=== PATIENT | female | born 1980 | race Caucasian/White ===

== ENCOUNTER 2017-04-16 15:20 | Emergency (ER) | payer MEDICAID ==
[~2017-04-16] VITALS: Ht 160 cm; Wt 54.9 kg
[~2017-04-16 15:20] MED LIST: ACET325T33 PO; ALBU8.5H3 INH; AZIT250T94 PO
[2017-04-16 15:22] VITALS: Ht 160 cm; Wt 54.9 kg
[2017-04-16] MEDS ORDERED: KETOROLAC 30 MG INJ IM STA (16:04)
[2017-04-16] MEDS ORDERED: ONDANSETRON (ODT) 4 MG TAB ODT STA (16:04)
[2017-04-16] MEDS ORDERED: HYDROCODONE/APAP (5/325) TAB PO ONE (16:30)
[2017-04-16] MEDS ORDERED: IBUP400T22 PO (16:57)
[2017-04-16] MEDS ORDERED: HYDR-906 PO (16:57)
[2017-04-16] MEDS ORDERED: ONDA4TAB14 PO (16:57)
[2017-04-16 17:10] VITALS: BP 138/77; PULSE 70; RESP 18; TEMP 98.2
--- NOTE | 2017-04-16 18:05 | ERD ---
ER Documentation Chief Complaint Chief Complaint C/O HEADACHE, PAIN TO FOREHEAD AND LEFT EYE FOR 3 DAYS; NO NEURO DEFICIT HPI Patient is a 36-year-old female presenting to the emergency department with complaints of headache. Pain is localized to the left side of the head and feels it is behind the left eye. 8 out of 10 pain which is intermittent. She does have history of the same in the past. She denies dysuria, fevers, neck pain, nausea, or other symptoms at this time. ROS All systems reviewed and are negative except as per history of present illness. Medications Home Meds Active Scripts Ondansetron (Ondansetron Odt) 4 Mg Tab.rapdis, 4 MG PO Q6H Y for NAUSEA AND/OR VOMITING, #10 TAB Prov:CASH BRODY PA-C 04/16/17 Ibuprofen* (Motrin*) 400 Mg Tab, 400 MG PO Q6, #30 TAB Prov:CASH BRODY PA-C 04/16/17 Hydrocodone/Acetaminophen ([place] 5-325 Tablet) 1 Each Tablet, 1 TAB PO Q6H Y for PAIN, #7 TAB Prov:CASH BRODY PA-C 04/16/17 Azithromycin* (Zithromax*) 250 Mg Tablet, 250 MG PO .ZPACK DIRECTED, #6 TAB TAKE 500 MG (2 TABS) THE FIRST DAY THEN 250 MG (1 TAB) DAYS 2-5 Prov:ANAND CAO PA-C 11/05/15 Albuterol Sulfate* (Proair HFA*) 8.5 Gm Hfa.aer.ad, 2 PUFF INH Q4, #1 INHALER Prov:ANAND CAO PA-C 09/19/15 Acetaminophen* (Tylenol*) 325 Mg Tablet, 2 TAB PO Q8 Y for PAIN AND OR ELEVATED TEMP, #20 TAB Prov:ANAND CAO PA-C 09/19/15 Allergies Allergies: Coded Allergies: No Known Allergy (Unverified , 06/01/16) PMhx/Soc Medical and Surgical Hx: pt denies Medical Hx, pt denies Surgical Hx History of Surgery: No Anesthesia Reaction: No Hx Neurological Disorder: No Hx Respiratory Disorders: No Hx Cardiac Disorders: No Hx Psychiatric Problems: No Hx Miscellaneous Medical Probl: No Hx Alcohol Use: No Hx Substance Use: No Hx Tobacco Use: No Smoking Status: Never smoker Physical Exam Vitals Vital Signs Date Time Temp Pulse Resp B/P Pulse Ox O2 Delivery O2 Flow Rate FiO2 04/16/17 17:10 98.2 70 18 138/77 100 Room Air 04/16/17 15:22 98.3 73 18 138/77 100 Physical Exam Const: Nontoxic, well-appearing female in no acute distress. Head: Atraumatic Eyes: Normal Conjunctiva ENT: Normal External Ears, Nose and Mouth. Neck: Full range of motion..~ No meningismus. Resp: Clear to auscultation bilaterally Cardio: Regular rate and rhythm, no murmurs Skin: No petechiae or rashes Ext: No cyanosis, or edema Neur: Awake and alert Psych: Normal Mood and Affect Results 24 hrs Current Medications Medications (Trade) Dose Ordered Sig/Eusebia Route PRN Reason Start Time Stop Time Status Last Admin Dose Admin Acetaminophen/ Hydrocodone Bitart ([place] (5/325)) 1 tab ONCE ONCE PO 04/16/17 16:30 04/16/17 16:31 DC 04/16/17 16:16 Ondansetron HCl (Zofran Odt) 4 mg ONCE STAT ODT 04/16/17 16:04 04/16/17 16:06 DC 04/16/17 16:16 Ketorolac Tromethamine (Toradol) 30 mg ONCE STAT IM 04/16/17 16:04 04/16/17 16:06 DC 04/16/17 16:16 Procedures/MDM 36-year-old female presenting to the emergency department with complaints of headache. Sxs are likely secondary to tension headache or migraine. Low suspicion for meningitis, intracranial hemorrhage, sepsis, or other emergencies. Patient stable for outpatient management with prescriptions. She was treated in the department and she was feeling significantly improved prior to discharge. Patient is to follow-up with her primary care physician within the next 1-2 days. She is to return immediately for any new or worsening symptoms. Departure Diagnosis: Primary Impression: Headache Headache type: unspecified Headache chronicity pattern: acute headache Intractability: not intractable Qualified Code: R51 - Acute nonintractable headache, unspecified headache type Condition: Fair Patient Instructions: Self-Care for Headaches Additional Instructions: Call your primary care doctor TOMORROW for an appointment during the next 1-2 days.See the doctor sooner or return here if your condition worsens before your appointment time. CASH BRODY PA-C Apr 16, 2017 18:04
== END 2017-04-16 17:10 | disposition home or self-care (01) ==
LOC: FTE 15:20
DX: R51 Headache (principal)
CPT/HCPCS: 96372; J1885; Z7502; Z7610

== ENCOUNTER 2018-10-01 07:02 | Emergency (ER) | payer MEDICAID ==
[~2018-10-01] VITALS: Ht 157.5 cm; Wt 56.0 kg
[~2018-10-01 07:02] MED LIST changes: -ALBU8.5H3 INH; +ALBU8.5H8 INH; +AZIT250T PO; -AZIT250T94 PO; +HYDR-4011 PO; +IBUP-1561 PO; +ONDA4TAB14 PO
[2018-10-01 07:05] VITALS: Ht 157.5 cm; Wt 56.0 kg
[2018-10-01] MEDS ORDERED: ALBUTEROL/IPRATROPIUM (NEB) 3 ML AMP HHN STA (09:34)
[2018-10-01] MEDS ORDERED: ALBUTEROL 0.083% (NEB) 2.5 MG/3 ML AMP HHN STA ×2 (09:34→10:25)
[2018-10-01] MEDS ORDERED: PROMETHAZINE/CODEINE 5ML CUP PO ONE (10:00)
[2018-10-01] MEDS ORDERED: IPRATROPIUM (NEB) 0.5 MG/2.5 ML AMP HHN ONE (10:30)
[2018-10-01] MEDS ORDERED: GUAI120S25 PO (10:51)
[2018-10-01] MEDS ORDERED: ALBU18HF INHALATION (10:51)
[2018-10-01] MEDS ORDERED: PROM5SYR2 PO (10:51)
[2018-10-01] MEDS ORDERED: BENZ-6 PO (10:51)
[2018-10-01] MEDS ORDERED: CETI10TA19 PO (10:58)
[2018-10-01 11:15] VITALS: BP 118/80; PULSE 80; RESP 18
--- NOTE | 2018-10-01 16:03 | ERD ---
ER Documentation Chief Complaint Chief Complaint COUGH , FEVER X 1 WEEK HPI History of Present Illness: 38-year-old female with no past medical today with complaint of productive cough with yellow/green sputum and fever. Patient presented. Unknown T-max at home. Patient reports receiving azithromycin in June twice for similar symptoms. At home pharmacological/nonpharmacological treatment for symptoms: Denies use of medications today; numbers as of yesterday. Denies social concerns; Denies recent foreign travel ROS All systems reviewed and are negative except as per history of present illness. Medications Home Meds Active Scripts Cetirizine Hcl* (Cetirizine Hcl*) 10 Mg Tablet, 10 MG PO QAM for COUGH/ALLERGIES/RUNNY NOSE, #30 TAB Prov:DOT SOTO NP 10/01/18 Albuterol Sulfate* (Ventolin HFA*) 18 Gm Hfa.aer.ad, 2 PUFF INHALATION Q4H for COUGH/WHEEZING/SOB, #1 INHALER Prov:DOT SOTO NP 10/01/18 Dqjgwdxswfd-I-Mpssmslits Hb* (Guaifenesin* DM Syrup) 120 Ml Syrup, 10 ML PO Q6 PRN for COUGH/MUCUS/CHEST CONGESTION, #120 ML Prov:DOT SOTO NP 10/01/18 Promethazine HCl/Codeine (Prometh-Codein 6.25-10 mg/5 ml) 5 Ml Syrup, 5 ML PO QHS for SEVERE COUGH/ALLEGIES, #60 Prov:DOT SOTO NP 10/01/18 Benzonatate* (Tessalon Perle*) 100 Mg Capsule, 100 MG PO Q8H PRN for COUGH, #30 CAP Take this medication during the daytime for cough. It will not cause drowsiness. You can take at night as well. Prov:DOT SOTO NP 10/01/18 Ondansetron (Ondansetron Odt) 4 Mg Tab.rapdis, 4 MG PO Q6H PRN for NAUSEA AND/OR VOMITING, #10 TAB Prov:CASH BRODY PA-C 04/16/17 Ibuprofen* (Motrin*) 400 Mg Tab, 400 MG PO Q6, #30 TAB Prov:CASH BRODY PA-C 04/16/17 Hydrocodone/Acetaminophen ([place] 5-325 Tablet) 1 Each Tablet, 1 TAB PO Q6H PRN for PAIN, #7 TAB Prov:CASH BRODY PA-C 04/16/17 Azithromycin* (Zithromax*) 250 Mg Tablet, 250 MG PO .AlejandrinaPACK DIRECTED, #6 TAB TAKE 500 MG (2 TABS) THE FIRST DAY THEN 250 MG (1 TAB) DAYS 2-5 Prov:ANAND CAO PA-C 11/05/15 Albuterol Sulfate* (Proair HFA*) 8.5 Gm Hfa.aer.ad, 2 PUFF INH Q4, #1 INHALER Prov:ANAND CAO PA-C 09/19/15 Acetaminophen* (Tylenol*) 325 Mg Tablet, 2 TAB PO Q8 PRN for PAIN AND OR ELEVATED TEMP, #20 TAB Prov:ANAND CAO PA-C 09/19/15 Allergies Allergies: Coded Allergies: No Known Allergy (Unverified , 06/01/16) PMhx/Soc History of Surgery: Yes (C/S) Anesthesia Reaction: No Hx Neurological Disorder: No Hx Respiratory Disorders: No Hx Cardiac Disorders: No Hx Psychiatric Problems: No Hx Miscellaneous Medical Probl: Yes (seasonal allergy,sinusitis) Hx Alcohol Use: No Hx Substance Use: No Hx Tobacco Use: No Smoking Status: Never smoker FmHx Family History: No diabetes, No coronary disease Physical Exam Vitals Vital Signs Date Temp Pulse Resp B/P (MAP) Pulse Ox O2 O2 Flow FiO2 Time Delivery Rate 10/01/18 98.8 80 18 118/80 100 Room Air 11:15 (93) 10/01/18 78 20 100 21 10:32 10/01/18 98.8 88 18 131/88 99 07:05 (102) Physical Exam Const: No acute distress Head: Atraumatic Eyes: Normal Conjunctiva ENT: Normal External Ears, Nose and Mouth. Neck: Full range of motion. No meningismus. Resp: Rales breath sounds to auscultation bilaterally. No wheezing, no stridor, no rhonchi. Cardio: Regular rate and rhythm, no murmurs Abd: Soft, non tender, non distended. Normal bowel sounds Skin: No petechiae or rashes Back: No midline or flank tenderness Ext: No cyanosis, or edema Neur: Awake and alert Psych: Normal Mood and Affect Results 24 hrs Current Medications Medications Dose Sig/Eusebia Start Time Status Last (Trade) Ordered Route PRN Stop Time Admin Dose Reason Admin Albuterol 2.5 mg ONCE STAT 10/01/18 DC (Proventil HHN 09:34 0.083% (Neb)) 10/01/18 10:28 Albuterol/ 3 ml ONCE STAT 10/01/18 DC Ipratropium HHN 09:34 (Duoneb) 10/01/18 10:28 Promethazine 10 ml ONCE ONCE 10/01/18 DC 10/01/18 HCl/ PO 10:00 10:00 Codeine 10/01/18 10:01 (Phenergan/ Codeine) Albuterol 5 mg ONCE STAT 10/01/18 DC 10/01/18 (Proventil HHN 10:25 10:31 0.083% (Neb)) 10/01/18 10:26 Ipratropium 0.5 mg ONCE ONCE 10/01/18 DC 10/01/18 [place] HHN 10:30 10:31 (Atrovent 10/01/18 10:31 0.02% (Neb)) Procedures/MDM ED course includes a thorough examination and history. Medications: Nebulizer treatment, promethazine with codeine Imaging: -- Labs: -- Low suspicion for life-threatening medical emergency. Low suspicion for coronary pulmonary emergency requires hospitalization or immediate surgical intervention. Low suspicion for infectious emergency THAT requires hospitalization. Otherwise healthy patient presenting with constellation of symptoms likely repre senting uncomplicated bronchitis as characterized by history, physical exam findings. No respiratory distress, otherwise relatively well appearing and nontoxic. Lung sounds are clear to auscultation after nebulizer treatments. Patient hemodynamically stable. Oxygen saturation within normal limits. No severe coughing noted during ER visit. Will give medication for symptom control. Will treat outpatient for bronchitis. Educated patient that this is likely not a bacterial etiology that requires antibiotics. Patient educated on diagnoses, prescriptions, follow-up care, return precautions. Strict return precautions given for worsening condition; questions answered discharge. Disposition for discharge with followup in 2 days with PCP/clinic; if symptoms persist or worsen or patient develops fever, educated to return for evaluation to rule out pneumonia. Departure Diagnosis: Primary Impression: Bronchitis Condition: Stable Patient Instructions: Bronchitis, No Antibiotic (Adult) Referrals: [facility] YOU HAVE RECEIVED A MEDICAL SCREENING EXAM AND THE RESULTS INDICATE THAT YOU DO NOT HAVE A CONDITION THAT REQUIRES URGENT TREATMENT IN THE EMERGENCY DEPARTMENT. FURTHER EVALUATION AND TREATMENT OF YOUR CONDITION CAN WAIT UNTIL YOU ARE SEEN IN YOUR DOCTORS OFFICE WITHIN THE NEXT 1-2 DAYS. IT IS YOUR RESPONSIBILITY TO MAKE AN APPOINTMENT FOR FOLOW-UP CARE. IF YOU HAVE A PRIMARY DOCTOR --you should call your primary doctor and schedule an appointment IF YOU DO NOT HAVE A PRIMARY DOCTOR YOU CAN CALL OUR PHYSICIAN REFERRAL HOTLINE AT IF YOU CAN NOT AFFORD TO SEE A PHYSICIAN YOU CAN CHOSE FROM THE FOLLOWING [facility] [address] [employer] [address]. [facility] [address] [facility] [facility] [address] [facility] [address] [facility] [address] [facility]. [address] [facility] YOU HAVE RECEIVED A MEDICAL SCREENING EXAM AND THE RESULTS INDICATE THAT YOU DO NOT HAVE A CONDITION THAT REQUIRES URGENT TREATMENT IN THE EMERGENCY DEPARTMENT. FURTHER EVALUATION AND TREATMENT OF YOUR CONDITION CAN WAIT UNTIL YOU ARE SEEN IN YOUR DOCTORS OFFICE WITHIN THE NEXT 1-2 DAYS. IT IS YOUR RESPONSIBILITY TO MAKE AN APPOINTMENT FOR FOLOW-UP CARE. IF YOU HAVE A PRIMARY DOCTOR --you should call your primary doctor and schedule and appointment IF YOU DO NOT HAVE A PRIMARY DOCTOR YOU CAN CALL OUR PHYSICIAN REFERRAL HOTLINE AT . IF YOU CAN NOT AFFORD TO SEE A PHYSICIAN YOU CAN CHOSE FROM THE FOLLOWING [facility] INSTITUTIONS: [facility] [address] [place] [address] [facility] [address] [place] [address] [facility] [address] [place] [address] Additional Instructions: Thank you very much for allowing us to participate in your care. Your health and safety is our top priority at [facility]. It is important to read all discharge instructions and education provided in your discharge packet. Call your primary care doctor TOMORROW for an appointment during the next 2-4 days and bring all the information and medications prescribed. Have prescriptions filled and follow precisely the directions on the label. -Ventolin is an inhaler. This medication is used to treat or prevent bronchospasm. This can be used to treat wheezing, shortness of breath, cough. -Cetirizine as an antihistamine that should not cause drowsiness; take this medication every day for allergy-like symptoms/cough/runny nose. -Guaifenesin/dextromethorphan (guaifenesin DM) is a medication that will help with cough as well as mucus/chest congestion. Take this medication daily as prescribed. tHis medication will not make you drowsy. -Benzonatate is a medication that will help with cough suppression. This medication will not make you drowsy. -Promethazine/codeine as a cough medicine and an antihistamine. This medication will help with cough and allergy-like symptoms. This medication will make you drowsy so only take at nighttime recommended. May take once IN morning and once at night if really needed. If the symptoms get worse and your provider is unavailable, return to the Emergency Department immediately. DOT SOTO NP Oct 01, 2018 16:03
== END 2018-10-01 11:17 | disposition home or self-care (01) ==
LOC: FTE 07:02
DX: J40 Bronchitis, not specified as acute or chronic (principal)
CPT/HCPCS: 94664; Z7502; Z7610